=== PATIENT | male | born 1990 | race Caucasian/White ===

== ENCOUNTER 2017-06-27 20:15 | Emergency (ER) | payer OTHER ==
[~2017-06-27] VITALS: Ht 185.4 cm; Wt 149.1 kg
[~2017-06-27 20:15] MED LIST: ATIVAN 1MG T1 MG/TAB PO; BENADRYL25 M2 PO; FLEXERIL 1010 MG/TAB PO; MOTRIN 800800 MG/TAB PO; MUSCLE RELAXANT; NO HOME MEDICATIONS; NORCO 325 MG-51 TAB PO; NORCO 325 MG-7.1 TAB PO; PERCOCET 325 MG1 TA2 PO; PHENERGAN 25 TA25 MG PO; PREDNISONE10 MG PO; PREDNISONE20 MG PO; REGLAN 10MG10 MG/TAB PO; SOMA250 MG; ULTRAM 50MG TAB50 MG PO; VALTREX1 GM PO
[2017-06-27 20:24] VITALS: BP 131/93; TEMP 98
[2017-06-27 22:45] VITALS: PULSE 94
== END 2017-06-27 22:46 | disposition home or self-care (01) ==
LOC: COL.ER 20:15
DX: G89.29 Other chronic pain (principal); M54.32 Sciatica, left side; F41.9 Anxiety disorder, unspecified

== ENCOUNTER 2017-10-10 16:30 | Emergency (ER) | payer OTHER ==
[~2017-10-10] VITALS: Ht 198.1 cm; Wt 150.0 kg
[2017-10-10 16:36] VITALS: BP 125/78
[2017-10-10 17:16] LABS: BASO # 0.1 (0.0-0.2); BASO % 0.3 % (0.0-2.0); EOS # 0.1 (0.0-0.7); EOS % 0.6 % (0-4.0); GRAN # 14.8 (1.4-6.5); GRAN % 84.9 % (42.2-75.2); HEMATOCRIT 48.4 % (42.0-52.0); HEMOGLOBIN 16.9 g/dl (13.5-18.0); LYMPH # 1.5 (1.2-3.4); LYMPH % 8.3 % (20.0-51.0); MEAN CELL VOLUME 85 fl (80.0-100.0); MEAN CORPUSCULAR HEMOGLOBIN 30 pg (27.0-31.0); MEAN CORPUSCULAR HGB CONC 35 g/dl (33.0-37.0); MEAN PLATELET VOLUME 10.8 fl (7.4-10.4); MONO % 5.5 % (1.7-9.3); PLATELET COUNT 241 K/mm3 (130-400); RED BLOOD COUNT 5.67 M/mm3 (4.20-5.60); REDCELL DISTRIBUTION WIDTH-CV 12.5 % (11.5-14.5)
[2017-10-10 17:25] LABS: ALBUMIN 4.6 gm/dL (3.5-5.0); BILIRUBIN,TOTAL 0.7 mg/dL (0.0-1.0); CALCIUM 9.2 mg/dL (8.4-10.2); CREATININE, serum 0.82 mg/dL (0.66-1.25); POTASSIUM 4.4 mmol/L (3.4-5.0); TOTAL PROTEIN 8.5 gm/dL (6.4-8.2)
[2017-10-10] MEDS ORDERED: PHENERGAN 25 TA25 MG PO (17:40)
[2017-10-10 17:59] LABS: GASTROCCULT POSITIVE; pH GASTRIC CONTENTS 4
[2017-10-10 18:25] VITALS: PULSE 107
== END 2017-10-10 18:28 | disposition home or self-care (01) ==
LOC: COL.ER 16:30
PROVIDERS: Emergency Medicine
DX: K52.9 Noninfective gastroenteritis and colitis, unspecified (principal)
CPT/HCPCS: J2405; J2550; J7030

== ENCOUNTER 2018-01-09 10:38 | Emergency (ER) | payer OTHER ==
[~2018-01-09] VITALS: Ht 185.4 cm; Wt 144.1 kg
[2018-01-09 10:40] VITALS: BP 164/96; PULSE 109; TEMP 98.3
[2018-01-09] MEDS ORDERED: FLOXIN OTIC DROP5 ML OT (10:56)
== END 2018-01-09 11:02 | disposition home or self-care (01) ==
LOC: COL.ER 10:38
DX: H60.503 Unspecified acute noninfective otitis externa, bilateral (principal)

== ENCOUNTER 2018-01-12 05:08 | Emergency (ER) | payer OTHER ==
[~2018-01-12] VITALS: Ht 185.4 cm; Wt 136.4 kg
[~2018-01-12 05:08] MED LIST changes: +FLOXIN OTIC DROP5 ML OT
[2018-01-12 05:15] VITALS: BP 142/98; PULSE 88; TEMP 97.5
[2018-01-12] MEDS ORDERED: AMOXICILLIN 8751 TAB PO (05:35)
== END 2018-01-12 05:53 | disposition home or self-care (01) ==
LOC: COL.ER 05:08
DX: H60.503 Unspecified acute noninfective otitis externa, bilateral (principal)

== ENCOUNTER 2020-07-04 17:41 | Emergency (ER) | payer OTHER ==
[~2020-07-04] VITALS: Ht 185.4 cm; Wt 159.1 kg
[~2020-07-04 17:41] MED LIST changes: +AMOXICILLIN 8751 TAB PO
[2020-07-04 17:49] VITALS: TEMP 98.5
[2020-07-04 18:51] LABS: BASO # 0.1 (0.0-0.2); BASO % 0.8 % (0.0-2.0); EOS # 0.1 (0.0-0.7); EOS % 0.9 % (0-4.0); GRAN # 5.1 (1.4-6.5); GRAN % 48.3 % (42.2-75.2); HEMOGLOBIN 16.7 g/dl (13.5-18.0); LYMPH # 3.9 (1.2-3.4); LYMPH % 37.6 % (20.0-51.0); MEAN CELL VOLUME 87 fl (80.0-100.0); MEAN CORPUSCULAR HEMOGLOBIN 30 pg (27.0-31.0); MEAN CORPUSCULAR HGB CONC 34 g/dl (33.0-37.0); MONO # 1.3 (0.1-0.6); MONO % 12.1 % (1.7-9.3); PLATELET COUNT 288 K/mm3 (130-400); RED BLOOD COUNT 5.65 M/mm3 (4.20-5.60); REDCELL DISTRIBUTION WIDTH-CV 12.7 % (11.5-14.5)
[2020-07-04 19:02] LABS: ALANINE AMINOTRANSFERASE 103 U/L (4-49); ALBUMIN 4.8 gm/dL (3.5-5.0); ALKALINE PHOSPHATASE 62 U/L (50-136); ANION GAP 12 mmol/L (7-16); AST,SGOT 53 U/L (15-37); BILIRUBIN,TOTAL 0.6 mg/dL (0.0-1.0); BLOOD UREA NITROGEN 11 mg/dL (9-20); CALCIUM 9.5 mg/dL (8.4-10.2); CARBON DIOXIDE 29 mmol/L (22-30); CHLORIDE 103 mmol/L (98-107); CREATININE, serum 1.07 (0.66-1.25); GLUCOSE 82 mg/dL (74-106); LIPASE 107 U/L (23-300); POTASSIUM 3.9 mmol/L (3.4-5.0); SODIUM 143 mmol/L (137-145); TOTAL PROTEIN 8.3 gm/dL (6.4-8.2)
[2020-07-04 19:15] LABS: C-REACTIVE PROTEIN < 0.5 mg/dL (0.0-0.9)
[2020-07-04 20:55] LABS: COLLECTION METHOD CLEAN CATCH
[2020-07-04 21:19] LABS: MUCOUS Present /lpf; PH 6 (5-8); SQUAMOUS EPITHELIAL 0-2 /hpf; URINE APPEARANCE Clear; URINE BACTERIA None Seen /hpf; URINE BILIRUBIN Negative (NEGATIVE); URINE BLOOD Negative (NEGATIVE); URINE COLOR Yellow; URINE GLUCOSE Negative (NEGATIVE); URINE KETONE Negative (NEGATIVE); URINE LEUKOCYTE ESTERASE Negative (NEGATIVE); URINE NITRATE Negative (NEGATIVE); URINE PROTEIN(semi-quant) Negative (NEGATIVE); URINE RBC 0-2 /hpf
[2020-07-04] MEDS ORDERED: PRIL40 PO (21:37)
[2020-07-04 22:00] VITALS: BP 132/92; PULSE 96
== END 2020-07-04 21:55 | disposition home or self-care (01) ==
LOC: COL.ER 17:41
PROVIDERS: Nurse Practitioner Primary Care
DX: R10.13 Epigastric pain (principal); R10.12 Left upper quadrant pain; E66.01 Morbid (severe) obesity due to excess calories; Z68.42 Body mass index [BMI] 45.0-49.9, adult
CPT/HCPCS: J2405; J7030; Q9967